=== PATIENT | female | born 1995 | race Two or more races ===

== ENCOUNTER 2023-12-03 11:59 | Emergency (ER) | payer OTHER ==
[~2023-12-03] VITALS: Ht 162.6 cm; Wt 57.2 kg
[2023-12-03 14:35] LABS: ABG PH 7.523 (7.35-7.45); ABG PO2 128.6 mmHg (80-100); ABG pCO2 25.1 mmHg (35-45); BASE EXCESS -0.8 mmol/l; BICARBONATE 20.2 mmol/l (23-25); SaO2 99.2 %; allen test SATISFACTORY; o2 21 %; puncture site RADIAL LEFT
== END 2023-12-03 19:10 | disposition home or self-care (01) ==
LOC: ER 11:59
PROVIDERS: Emergency Medicine
DX: J06.9 Acute upper respiratory infection, unspecified (principal)